=== PATIENT | male | born 1990 | race Caucasian/White ===

== ENCOUNTER 2016-04-24 19:24 | Emergency (ER) | payer BC ==
--- NOTE | 2016-04-24 20:21 | ERNOTE ---
Medical Problem HPI - Narrative Date of Service: 04/24/16 - General Chief Complaint: Flu Symptoms Time Seen by Provider: 04/24/16 20:11 Source: patient Exam Limitations: no limitations - Immun/Allergies/Home Medications Immunizations: IMMUNIZATION HX Immunizations Up to Date No History of Influenza Vaccine No Hx Pneumococcal Vaccination No Allergies/Adverse Reactions: Allergies No Known Drug Allergies Allergy (Verified 04/24/16 19:37) Home Medications: HOME MEDICATIONS Albuterol Sulfate [Proventil Hfa] 6.7 gm IH BID PRN 7 Days 04/24/16 [Last Taken Unknown] Ibuprofen [Motrin] 200 mg PO PRN PRN 04/24/16 [Last Taken 04/24/16 12:00] Ibuprofen [Motrin] 800 mg PO TID PRN #20 tab 04/24/16 [Last Taken Unknown] guaiFENesin/DEXTROMETHORPHAN [Robitussin-Dm] 5 ml PO HS PRN #1 btl 04/24/16 [ Last Taken Unknown] - History of Present History Narrative: patient is here for five days of fevers and body aches, congestion and coughing Review of Systems - Review of Systems Constitutional: Present: See HPI EYE: Present: no symptoms reported ENT: Present: See HPI Respiratory: Present: See HPI Cardiology: Present: no symptoms reported Gastrointestinal/Abdominal: Present: no symptoms reported Genitourinary: Present: no symptoms reported Musculoskeletal: Present: See HPI - Patient's Past Medical History Patient History - Medical: No pertinent hx Patient History - Cardiac/Respiratory: No pertinent hx Patient History - Cancer: No Hx of Cancer Patient History - Surgical Procedures: No surgical history Patient History - Other: None - Social History Living Situations: home Psych History: No pertinent hx Smoking Status: Former smoker Do you dip or chew tobacco: Yes Alcohol Use: occasionally Drug Use: none - Immunizations Immunizations Up to Date: No Hx Pneumococcal Vaccination: No History of Influenza Vaccine: No Physical Exam - Physical Exam General Appearance: Present: wd/wn, no apparent distress, other - pt appears tired Eye Exam: Normal inspection: bilateral, PERRL: bilateral, EOMI: bilateral Ears, Nose, Throat: Present: normal ENT inspection Neck: Present: normal inspection, nontender, supple, full range of motion Respiratory: Present: no respiratory distress, normal breath sounds, chest nontender, other - pulmonary exam is NORMAL with out any wheezing however pt states that SOMETIMES he feels short of breath. He has NO shortness of breath at this time. Gastrointestinal/Abdominal: Present: normal bowel sounds, nontender ED Progress - Results and Orders Patient's Lab Results:: I have reviewed the patient's lab results. - pt's tests are positive for Influenza B - Vital Signs Patient's Vital Signs:: I have reviewed the patient's vital signs. Vital Signs: Vital Signs 04/24/16 19:33 Temperature 38.4 C H Pulse Rate 112 H Respiratory 18 Rate Blood Pressure 127/68 O2 Sat by Pulse 98 Oximetry - Progress/Reassessment Chief Complaint: Flu Symptoms Plan - Plan Plan: It is day 5 of symptoms, so pt will be treated for symptoms Departure - Departure Clinical Impression: Influenza B Disposition: Home self-care Condition: Good Instructions: Influenza, Adult, [id number] Prescriptions: Albuterol Sulfate [Proventil Hfa] 6.7 gm IH BID PRN 7 Days PRN Reason: Shortness Of Breath Ibuprofen [Motrin] 800 mg PO TID PRN #20 tab PRN Reason: Pain guaiFENesin/DEXTROMETHORPHAN [Robitussin-Dm] 5 ml PO HS PRN #1 btl PRN Reason: Cough
[2016-04-24] MEDS ORDERED: KETOROLAC TROMETHAMINE 60 MG/2 ML VIAL IM ONE ×2 (20:32→20:37)
[2016-04-24 20:57] VITALS: BP 120/81
--- OUTSIDE RECORDS SUMMARY | 2016-04-24 21:18 | XMS REPORT | Continuity of Care Document ---
:1990 Author Organization [facility] ([facility]) Address [address] [place] [address] Phone [phone] Care Team Providers Name Role Phone Unavailable Primary Care Provider Unavailable Source Comments This disclosure is being made pursuant to the Care Everywhere program, applicable federal and state laws, and may not contain all informaitonavailable regarding this patient.[facility] ([facility]) Active Allergies and Adverse Reactions Not on File Current Medications Not on file Active Problems Not on file Social History Tobacco Use Types Packs/Day Years Used Date Never Assessed Plan of Care Health Maintenance Due Date Last Done Comments Hepatitis B Vaccine (1 of 3 - Primary Series) 1991 HPV Vaccine (1 of 3 - Male 3 Dose Series) 2002 Tdap Vaccine 2002 Lipid Disorder Screening 2009 MMR Vaccine 2009 Td Vaccine 2009 Varicella Vaccine (1 of 2 - Adult - No Evidence of 2009 Immunity) Influenza Vaccine: Seasonal (#1) 09/17/2015 Results from Last 3 Months Not on file
== END 2016-04-24 20:43 | disposition home or self-care (01) ==
LOC: ER 19:24
DX: J10.1 Influenza due to other identified influenza virus with other respiratory manifestations (principal); F17.220 Nicotine dependence, chewing tobacco, uncomplicated